=== PATIENT | female | born 1970 | race Caucasian/White ===

== ENCOUNTER → 2016-10-28 | Outpatient (CLI) | payer OTHER | END | disposition home or self-care (01) | LOC: CFH 07:59 | PROVIDERS: ATTEND Nurse Practitioner | DX: Z12.31 Encounter for screening mammogram for malignant neoplasm of breast (principal) | CPT/HCPCS: G0202 ==

== ENCOUNTER → 2019-08-29 | Outpatient (CLI) | payer OTHER | END | disposition home or self-care (01) | LOC: CFH 07:12 | PROVIDERS: ATTEND Nurse Practitioner | DX: Z12.31 Encounter for screening mammogram for malignant neoplasm of breast (principal) | CPT/HCPCS: 77063; 77067 ==

== ENCOUNTER → 2021-01-28 | Outpatient (CLI) | payer OTHER | END | disposition home or self-care (01) | LOC: CFH 07:42 | PROVIDERS: ATTEND Specialist | DX: N64.3 Galactorrhea not associated with childbirth (principal); N64.52 Nipple discharge | CPT/HCPCS: 77062; 77066; G0279 ==